=== PATIENT | male | born 1975 | race Caucasian/White ===

== ENCOUNTER 2023-09-05 09:18 | Emergency (ER) | payer OTHER, SELFPAY ==
[2023-09-05 09:21] VITALS: BP 151/94; PULSE 87; RESP 20; TEMP 36.6; O2SAT 100; BMI 30.7
--- NOTE | 2023-09-05 09:26 | XR_ITS ---
The [address] [id number] Patient Name: MICAH CORDOVA MRN: [id number] date: 1975 Sex: M Assigned Patient Location: ER Current Patient Location: ED.MAIN Accession/Order Number: [id number] Exam Date: 09/05/2023 09:35 Report Date: 09/05/2023 09:53 At the request of: MATTHEW JAVIER Procedure: XR shoulder LT min 2V EXAM: XR shoulder LT min 2V HISTORY: injury to left shoulder COMPARISON: None. TECHNIQUE: 3 views of the left shoulder FINDINGS: No acute fracture or dislocation. Joint spaces are well-maintained. Soft tissues are grossly unremarkable. XR/XR shoulder LT min 2V IMPRESSION: Normal exam. Electronically authenticated by: DAGMAR SUGGS Date: 09/05/2023 09:53
--- NOTE | 2023-09-05 10:03 | ED.UPPEXIN1 ---
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 As he fell, he grabbed onto the sheeting and rafter edge with both hands and his arm extended, pulling on his shoulders as he hung. He then used his arm to move over to there he could safely get down, away from the saw horses and other materials below him. Instantly, he felt pain in the left shoulder. This occurred last night. Now the left shoulder is too painful to move. he localizes pain throughout the shoulder but it is worst at the anterior and superior left shoulder. No prior injury or surgery to that shoulder Related Data Previous Rx's Medication Instructions Recorded nabumetone 750 mg tablet 750 mg PO BID PRN pain #14 tabs 09/05/23 Allergies Allergy/AdvReac Type Severity Reaction Status Date / Time No Known Drug Allergies Allergy Verified 09/05/23 09:25 [facility] Social History Smoking status: Heavy tobacco smoker Exam Narrative Exam Narrative: Nurses notes and vital signs reviewed and patient is not hypoxic. afebrile General: Well-appearing and in no apparent distress. Skin: Warm, dry, no pallor noted. No rash. Head: Normocephalic, atraumatic. Neck: Supple, non-tender. Cardiovascular: Regular Rate and Rhythm without murmur, gallop or rub. Respiratory: No accessory muscle use or respiratory distress. Lungs are clear to auscultation, no wheezing, rales or rhonchi Back: No midline thoracic or scapular tenderness. Mild superior left trapezius soft tissue tenderness Musculoskeletal: LEFT SHOULDER - Soft tissue and bony tenderness thoughout with increased tenderness anteriorly. Unable to flex, extend or adduct more than 10 degrees. No deformity noted. Distal left UE with normal ROM from elbow through forearm, wrist and hand. no upper extremity edema/swelling Neurological: A&O x4. No cranial nerve dysfunction observed. No truncal ataxia. Moves all extremities. Sensation intact. Psychiatric: Cooperative and interactive. Normal mood and affect. Constitutional Vital Signs, click to edit/add: Last Vital Signs Temp 98 F 09/05/23 09:21 Pulse 87 09/05/23 09:21 Resp 20 09/05/23 09:21 BP 151/94 H 09/05/23 09:21 Pulse Ox 100 09/05/23 09:21 O2 Del Method Room Air 09/05/23 09:21 Course Vital Signs Vital signs: Vital Signs Temperature 98 F 09/05/23 09:21 Pulse Rate 87 09/05/23 09:21 Respiratory Rate 20 09/05/23 09:21 Blood Pressure 151/94 H 09/05/23 09:21 Pulse Oximetry 100 09/05/23 09:21 Oxygen Delivery Method Room Air 09/05/23 09:21 Temperature 98 F 09/05/23 09:21 Pulse Rate 87 09/05/23 09:21 Respiratory Rate 20 09/05/23 09:21 Blood Pressure 151/94 H 09/05/23 09:21 Pulse Oximetry 100 09/05/23 09:21 Oxygen Delivery Method Room Air 09/05/23 09:21 MDM - Extremity Injury (Upper) MDM Narrative Medical decision making narrative: xrays of the left shoulder unremarkable. Patient informed of result, diagnosis and plan for treatment. Sling applied by the ED nurse to the patient's left shoulder and he was neurovascularly intact distally afterward. Patient was to see either Dr Platt or Dr Chino for follow up. Prescribed Relafen for home use in case the Motrin that he wants to take is ineffective. Work excuse given. Imaging Data xr shoulder: Radiologist's impression: ITS Impressions Shoulder X-Ray 09/05/23 09:26 IMPRESSION: Normal exam. Electronically authenticated by: DAGMAR SUGGS Date: 09/05/2023 09:53 Discharge Plan Discharge Chief Complaint: Extremity Injury, Upper Clinical Impression: Rotator cuff arthropathy of left shoulder, Left shoulder strain Patient Disposition: Home, Self-Care Time of Disposition Decision: 10:09 Prescriptions / Home Meds: New nabumetone 750 mg tablet 750 mg PO BID PRN (Reason: pain) Qty: 14 0RF Instructions: Rotator Cuff Injury (ED), Shoulder Pain (ED) Stand Alone Forms: Portal Instructions Referrals: Juan Manuel Chino DO [Physician] - As soon as possible
== END 2023-09-05 10:43 | disposition home or self-care (01) ==
PROVIDERS: Emergency Provider Emergency Medicine; PCP Family Medicine
DX: S46.912A Strain of unspecified muscle, fascia and tendon at shoulder and upper arm level, left arm, initial encounter (principal); M12.812 Other specific arthropathies, not elsewhere classified, left shoulder; W11.XXXA Fall on and from ladder, initial encounter; F17.210 Nicotine dependence, cigarettes, uncomplicated
CPT/HCPCS: 73030; 99283